=== PATIENT | female | born 1970 | race Two or more races ===

== ENCOUNTER → 2025-01-30 | Outpatient (CLI) | payer MEDICAID, SELFPAY ==
--- NOTE | 2025-01-30 14:45 | XR_ITS ---
Examination: Screening digital mammography, bilateral Computer aided detection 3-D breast Tomosynthesis, bilateral Date and time of exam: January 30, 2025, 1429 hours Indication: Screening Technique: Nonmagnified MLO, CC views of the breasts to been obtained, reconstructed from 3-D Tomosynthesis images. R2 computer aided detection program utilized for evaluation of suspicious masses and/or abnormal calcifications. 3-D Tomosynthesis images obtained. Findings: The breasts are heterogeneously dense, which may obscure small masses 13 mm and adjacent 13 mm focal areas of asymmetry in the upper outer right breast 7 mm focal asymmetry upper inner left breast anterior depth Impression: BI-RADS Category 0: Incomplete: Needs extremity evaluation Recommend follow-up spot tomographic views upper-outer quadrant right breast to assess to 13 mm focal asymmetries upper outer right breast as well as spot tomographic views 7 mm focal asymmetry upper inner left breast anterior depth Recommend bilateral breast sonography to complete the work-up.
== END | disposition home or self-care (01) ==
LOC: CDIM 14:20
PROVIDERS: Referring Provider Nurse Practitioner Primary Care; Visit Provider Nurse Practitioner Primary Care
DX: Z12.31 Encounter for screening mammogram for malignant neoplasm of breast (principal); N64.89 Other specified disorders of breast
CPT/HCPCS: 77063; 77067

== ENCOUNTER 2025-02-01 12:41 | Emergency (ER) | payer MEDICAID, SELFPAY ==
[2025-02-01 12:49] VITALS: BP 139/88; PULSE 80; RESP 18; TEMP 36.4; O2SAT 98; BMI 30.2
--- NOTE | 2025-02-01 13:33 | EKG_ITS ---
[facility] Test Date: 2025-02-01 Pat Name: WILLIAM SINGH Department: Room: - Gender: Female Network Systems Operator: : 1970 Requested By: Michel Pedro Order Number: [id number] Reading MD: Michel Pedro Measurements Intervals [place] Rate: 71 P: 46 NM: 179 QRS: 30 QRSD: 88 T: 22 QT: 355 QTc: 388 Interpretive Statements SINUS RHYTHM POSSIBLE LEFT ATRIAL ENLARGEMENT [-0.1mV P-WAVE IN V1/V2] POSSIBLE RIGHT VENTRICULAR CONDUCTION DELAY [RSR (QR) IN V1/V2] NONSPECIFIC T-WAVE ABNORMALITY No previous ECG available for comparison /store/S0/[id number].pdf
--- NOTE | 2025-02-01 13:33 | XR_ITS ---
EXAMINATION: Cervical spine 3 views TECHNIQUE: AP, lateral, coned AP odontoid cervical spine 3 views Date and time: February 01, 2025, 1344 hours INDICATIONS: Sudden onset left-sided cervical spine pain beginning 3 days ago. FINDINGS: Adequate alignment cervical vertebral bodies. No cervical fracture. Intact odontoid. Moderate to advanced degenerative disc disease C4-C5, C5-C6, C6-C7 with anterior and posterior osteophyte formation IMPRESSION: Moderate to advanced degenerative disc disease C4-C5, C5-C6, C6-C7 No cervical fracture
--- NOTE | 2025-02-01 13:33 | XR_ITS ---
EXAMINATION: PA chest single view TECHNIQUE: Upright PA chest single view Date and time: February 01, 2025, 1343 hours, comparison March 02, 2016 INDICATIONS: Chest pain and numbness in the left arm beginning 3 days ago. FINDINGS: Moderate enlargement left ventricle Mild vascular congestion. No lobar pneumonia or pulmonary edema IMPRESSION: Moderate enlargement left ventricle Mild vascular congestion
[2025-02-01 14:10] LABS: Basophils # (Auto) 0.1 Thou/mm3 (0.0-0.2); Basophils % (Auto) 1 % (0-2.5); Eosinophils # (Auto) 0.1 Thou/mm3 (0.0-0.5); Eosinophils % (Auto) 1 % (0-10); Hematocrit 40.5 % (36.0-46.0); Hemoglobin 13.3 g/dL (12.0-16.0); Immature Granulocytes Auto 0.02 Thou/mm3 (0.00-0.00); Lymphocytes # (Auto) 2.6 Thou/mm3 (1.0-4.8); Lymphocytes % (Auto) 37 % (10-50); Mean Corpuscular HGB Conc 32.8 g/dl (31.0-37.0); Mean Corpuscular Hemoglobin 29.4 pg (25.0-35.0); Mean Corpuscular Volume 90 fL (80-100); Monocytes # (Auto) 0.5 Thou/mm3 (0.0-0.8); Monocytes % (Auto) 7 % (0-12); Neutrophils # (Auto) 4.0 Thou/mm3 (1.8-7.7); Neutrophils % (Auto) 55 % (37-80); Nucleated Red Blood Cell # 0.00 Thou/mm3 (0.00-0.00); Nucleated Red Blood Cell % 0 /100 WBC (0); Platelet Count 301 Thou/mm3 (140-440); RDW Standard Deviation 41.5 fL (36.4-46.3); Red Blood Count 4.52 Miln/mm3 (4.00-5.20); White Blood Count 7.2 Thou/mm3 (3.6-11.0)
[2025-02-01 14:30] LABS: Alanine Aminotransferase 20 U/L (10-49); Albumin, Serum 4.9 gm/dL (3.5-5.0); Albumin/Globulin Ratio 1.7 (1.2-2.2); Alkaline Phosphatase 76 U/L (46-116); Anion Gap 9 (7-16); Aspartate Amino Transferase 24 U/L (0-34); BUN/Creatinine Ratio 19 Ratio (12-20); Bilirubin,Total 0.4 mg/dL (0.3-1.2); Blood Urea Nitrogen 13 mg/dL (9-23); Calcium 9.4 mg/dL (8.3-10.6); Calcium (Corrected) 9.4 mg/dL (8.5-10.1); Carbon Dioxide 29.1 mMol/L (20.0-31.0); Chloride 104 mMol/L (98-107); Creatinine (Component) 0.7 mg/dL (0.6-1.3); Estimated Creatinine Clearance 92.9 mL/min (>60); Globulin 2.9 gm/dL (2.3-3.5); Glucose 95 mg/dL (74-106); Osmolality,Calculated 283 (275-295); Potassium 3.5 mMol/L (3.4-5.1); Sodium 142 mMol/L (136-145); Total Protein 7.8 gm/dL (5.7-8.2); Troponin I < 0.002 ng/mL (0.0-0.045); eGFR > 60 See Note
[2025-02-01] MEDS: DIAZEPAM 5 MG TABLET 10 MG PO (14:49)
[2025-02-01] MEDS: KETOROLAC INJ 30 MG/ML VIAL IM (14:49)
--- NOTE | 2025-02-01 14:49 | PD.EDBACK ---
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 Denies vertigo, fever, shortness of breath, nausea vomiting, vision changes, speech changes, incontinence, weakness. Related Data Previous Rx's ?Medication ?Instructions ?Recorded hydrochlorothiazide 12.5 mg capsule 12.5 mg PO QDAY #30 caps 12/28/15 prednisone 10 mg tablets in a dose 30 mg (3 x 10 mg) PO BID #18 tabs 10/31/16 pack cyclobenzaprine 10 mg tablet 10 mg PO HS PRN muscle spasm #10 02/01/25 tabs lidocaine 5 % topical patch 1 patch topical QDAY #15 ea 02/01/25 (Lidoderm) naproxen 500 mg tablet 500 mg PO BID PRN pain #14 tabs 02/01/25 Allergies Allergy/AdvReac Type Severity Reaction Status Date / Time No Known Drug Allergies Allergy Verified 02/01/25 12:47 ED Exam Narrative Physical exam: Constitutional: Patient alert and oriented. Well appearing. No acute distress. Not toxic appearing. Head: Normocephalic, atraumatic. Eyes: Periorbital regions bilaterally normal to inspection. Conjunctiva clear bilaterally. Sclera anicteric bilaterally. Pupils equal, round, reactive to light bilaterally. Extraocular movements intact bilaterally. Mouth/Throat: Mucous membranes moist. No stridor or muffled voice. No trismus. Handling secretions without difficulty. Airway widely patent. Neck: Supple. Trachea midline. No JVD. No nuchal rigidity. Normal range of motion. Respiratory: Normal effort. No accessory muscle use or respiratory distress. Lungs clear to auscultation bilaterally without rhonchi, wheezes, or crackles. Cardiovascular: RRR. Normal S1/S2. No murmurs or rubs. Radial pulses intact bilaterally. Abdomen: Soft. Non-distended. Non-tender throughout. No pulsatile mass. No guarding or rebound. Negative No?s sign. Back: No midline tenderness or step-offs. Left CVA TTP. Positive left parathoracic, paracervical, lumbar tenderness to palpation. Upper Extremities: No gross deformities. Positive Spurling's test for flexion of the neck to the left. Deep tendon reflexes 2+ and symmetric. Accounts Payable Administrator, median, ulnar, radial nerve strength 5/5 B/L. Lower Extremities: No gross deformities. No edema or calf tenderness. Positive left-sided straight leg raise. Deep tendon reflexes 2+ and symmetric Neuro: Speech normal. No gross motor or sensory deficits to upper or lower extremities bilaterally. GCS 15. CN II?XII grossly intact. Skin: Warm, dry, normal color. Psych: Normal affect. Cooperative. Normal insight. Course Quality Measures none Orders Category Date Time Status EKG (ED ONLY) *Do not use* NOW Care 02/01/25 13:[address] abdomen pelvis wo con Stat Exams 02/01/25 16:14 Completed EKG (ED Only) Stat Exams 02/01/25 13:33 Draft XR cervical spine 2-3V Stat Exams 02/01/25 13:33 Completed XR chest 1V Stat Exams 02/01/25 13:33 Completed BNP [B-Type Natriuretic Peptide] Stat Lab 02/01/25 14:00 Completed CBC Stat Lab 02/01/25 14:00 Completed CMP [Comprehensive Metabolic Panel] Stat Lab 02/01/25 14:00 Completed Troponin I Stat Lab 02/01/25 14:00 Completed Dexamethasone Inj [Decadron Inj] Med 02/01/25 16:19 Discontinued 10 mg IM X1 ONE Diazepam [Valium] Med 02/01/25 13:34 Discontinued 10 mg PO X1 ONE Ketorolac Inj [Toradol Inj] Med 02/01/25 13:34 Discontinued 30 mg IM X1 ONE Ketorolac Inj [Toradol Inj] Med 02/01/25 16:15 Discontinued 30 mg IM X1 ONE Reevaluation(s) Reevaluation #1: At the time of reassessment, the patient remains alert and oriented ?3 with GCS 15. Vitals are normal, pain is controlled, and the patient is tolerating oral intake without nausea or vomiting. The patient is agreeable to discharge and verbalizes understanding of the diagnosis, studies, treatment plan, medications (including side effects/precautions), and strict ER return precautions as discussed in the ED. All concerns were addressed, and the patient is comfortable with the plan. Vital Signs Vital signs: Vital Signs Temperature 97.6 F 02/01/25 12:49 Pulse Rate 80 02/01/25 12:49 Respiratory Rate 18 02/01/25 12:49 Blood Pressure 139/88 H 02/01/25 12:49 Pulse Oximetry (%) 98 02/01/25 12:49 Oxygen Delivery Method Room Air 02/01/25 12:49 Back Pain / Injury MDM Narrative MDM Narrative:: MDM: Presentation most consistent with a msk back pain complicated by cervical and lumbar radiculopathy. Symptoms are sensory only, without associated weakness or central features. Reflexes preserved; no hyperreflexia, clonus, or spasticity. No facial or speech involvement to suggest cortical process. left upper extremity and lower extremity remains DNVI with soft compartments, no vascular compromise. CVA/TIA: No facial droop, speech change, or motor deficit; NIHSS 0. Cord or Cauda Compression/Myelopathy: No sensory level, saddle anesthesia, hyperreflexia, gait disturbance, or bowel/bladder dysfunction to suggest cervical, thoracic, or lumbosacral involvement. Reflexes not pathologically brisk; tone normal. Demyelinating Process (MS/Transverse Myelitis): Typically presents with bilateral or symmetric findings; none present here. No visual disturbance, abnormal reflexes, or progressive motor deficit. Toxic/Metabolic: No recent exposure or systemic findings. Summary: Findings support radicular etiology versus stable peripheral etiology; patient neurologically intact with low suspicion for acute SENIOR CONSULTING MANAGER, vascular, cord, cauda equina or compressive process. Patient remains neurologically stable Plan: Symptomatic management and reassurance. Outpatient follow-up with PMD if persistent or progressive. Return precautions for new weakness, saddle anesthesias, incontinence, gait change, facial droop, speech difficulty, or progression. Patient understands and agrees with plan. Patient data External records reviewed:: None Clinical information provided by:: other (specify) Social determinants that could affect healthcare access:: none Patient has the following chronic illnesses:: None How is presenting disease/condition affected by chronic disease/condition?: no chronic disease Evaluation data The following diagnostics were reviewed and interpreted by me:: lab results, radiology exam(s), EKG tracing(s) and other (specify) Lab and/or radiology exams considered but not ordered:: Labs and radiology considered, but not ordered as they were not clinically indicated at this time. Interpretation Summary: No severe metabolic or electrolyte abnormality and EKG without acute ischemia or arrhythmia. UA was notable for microscopic hematuria. X-ray was notable for mild vascular congestion and cardiomegaly without effusions. Medications / Prescriptions Medications or Prescriptions considered but not ordered:: I considered prescription management (both outpatient prescriptions AND drug treatment in the ER) and decided that this was necessary and was prescribed as charted. Medication administrations:: Medication Administration History Discontinued Medications Dexamethasone Sodium Phosphate (Dexamethasone Sod Phos Inj 10 Mg/Ml Vial) 10 mg IM X1 ONE Stop: 02/01/25 16:20 Last Admin: 02/01/25 16:29 Dose: 10 mg Documented By: JACKELINE Diazepam (Diazepam 5 Mg Tablet) 10 mg PO X1 ONE Stop: 02/01/25 13:35 Last Admin: 02/01/25 14:49 Dose: 10 mg Documented By: JACKELINE Ketorolac Tromethamine (Ketorolac Inj 30 Mg/Ml Vial) 30 mg IM X1 ONE Stop: 02/01/25 13:35 Last Admin: 02/01/25 14:49 Dose: 30 mg Documented By: JACKELINE Ketorolac Tromethamine (Ketorolac Inj 30 Mg/Ml Vial) 30 mg IM X1 ONE Stop: 02/01/25 16:16 Last Admin: 02/01/25 16:19 Dose: Not Given Documented By: JACKELINE Non-Admin Reason: Cancelled by Provider as noted Consultations Consultation(s) initiated? (list below): No Diagnosis Differential diagnosis back pain/injury: lumbar radiculopathy, sciatica and AAA Most likely diagnosis given after review of the tests above:: Cervical radiculopathy complicated by lumbar radiculopathy Admission Indicated Admission indicated?: not indicated Admission Request Was there a request for admission?: No Disposition Plan Disposition Plan: Discharge Discharge Attestation Discharge Attestation: The patient and all family members were given an opportunity to ask questions and understood the discharge instructions. Discharge instructions specifically effects, indications for sooner follow up or return to the emergency department, and the expected course of current diagnosis. Patient condition: Stable Discharge Plan Plan Patient Disposition: HOME (Self Care) Prescriptions/Referrals Prescriptions/Med Rec: New lidocaine [Lidoderm] 5 % adhesive patch,medicated 1 patch topical QDAY Qty: 15 0RF Rx Instructions: leave on most painful area for up to 12 hrs cyclobenzaprine 10 mg tablet 10 mg PO HS PRN (Reason: muscle spasm) Qty: 10 0RF naproxen 500 mg tablet 500 mg PO BID PRN (Reason: pain) Qty: 14 0RF No Action hydrochlorothiazide 12.5 MG capsule 12.5 mg PO QDAY Qty: 30 0RF prednisone 10 MG tablets,dose pack 30 mg PO BID Qty: 18 0RF Referrals: Troy ([facility])Stefanie PA-C [Primary Care Provider] - In 1 week Problem List Clinical Impression: Lumbar radiculopathy Patient/Caregiver Discharge Instructions Education Materials: Back Basics: A Healthy Spine, Understanding Lumbar Radiculopathy, ED Radiculopathy, Cervical Additional Instructions: Follow up with your primary medical doctor within 24 hours. Return to the Emergency Room immediately for any new, worsening, continuing symptoms or any concerns at all. Return to the Emergency Room within 24 hours if you are unable to follow up with your primary medical doctor within 24 hours. Print Language: Mongolian Stand Alone Forms: Lisset Award Info., Patient Portal Info Letter PA/WHITNEY Supervising Physician PA/WHITNEY Supervising Physician: Dr. Haines
--- NOTE | 2025-02-01 16:14 | XR_ITS ---
Examination: CT abdomen and pelvis without contrast. Coronal 3-D reconstructions. Sagittal 2-D reconstructions. Date and time of exam: February 01, 2025, 1654 hours INDICATIONS: Onset left-sided flank pain beginning 1 week ago CTDI: vol (mGy): 9.44 DLP: (mGycm): 506 Technique: Axial images of the abdomen have been obtained, 3 mm slice thickness Intravenous contrast material has not been administered. Low dose protocols were performed. One or more of the following dose reduction techniques were used; automated exposure control, adjustment of the mA and/or KV according to patient size, use of iterative reconstruction technique. Findings: No liver or splenic lesion No gallstones No pancreatic mass No renal or ureteral calculi, no hydronephrosis Aorta normal size 13 mm fat-containing umbilical hernia No bowel obstruction Normal appendix Scattered colonic diverticulosis, no diverticulitis Atrophic uterus, no adnexal mass Urinary bladder intact, no bladder mass or bladder calculi Moderate osteopenia IMPRESSION: No renal or ureteral calculi, no hydronephrosis Normal appendix No bladder mass or bladder calculi
[2025-02-01 16:27] VITALS: BP 136/87; PULSE 56; RESP 18; TEMP 36.6; O2SAT 100
[2025-02-01] MEDS: DEXAMETHASONE SOD PHOS INJ 10 MG/ML VIAL IM (16:29)
[2025-02-01 16:49] LABS: B-Type Natriuretic Peptide < 20 pg/mL (0-100)
== END 2025-02-01 18:14 | disposition home or self-care (01) ==
PROVIDERS: Physician Assistant; Emergency Provider Emergency Medicine; PCP Physician Assistant
DX: M54.16 Radiculopathy, lumbar region (principal)
CPT/HCPCS: 36415; 71045; 72040; 74176; 80053; 83880; 84484; 85025; 93005; 96372; 99283; J1100; J1885; A9270

== ENCOUNTER 2025-02-03 11:16 | Emergency (ER) | payer MEDICAID, SELFPAY ==
[2025-02-03 11:17] VITALS: BMI 32.9
[2025-02-03 12:00] VITALS: BP 133/85; PULSE 70; RESP 18; TEMP 36.9; O2SAT 99
--- NOTE | 2025-02-03 12:05 | XR_ITS ---
EXAMINATION: Lumbar spine 3 views TECHNIQUE: AP lateral: Lateral lower lumbar spine 3 views Date and time: February 03, 2025, 12:44 p.m. INDICATIONS: Low back pain beginning 6 days ago. FINDINGS: Adequate alignment lumbar vertebral bodies No lumbar fracture Diffuse mild lumbar disc narrowing. Mild lumbar spondylosis. IMPRESSION: Diffuse mild lumbar degenerative disc disease
--- NOTE | 2025-02-03 12:05 | PD.EDRME ---
Rapid Medical Screening Exam RME Arrival date/time: 02/03/25 11:16 54-year-old female with a history of hypertension presents to the emergency room with a chief complaint of left-sided body pain x 6 days. Patient states she was seen here 2 days ago and her symptoms have not gotten any better. I have greeted and performed a focused initial assessment of this patient. A comprehensive ED assessment and evaluation of the patient, analysis of all test results, and completion of the medical decision making process will be conducted by additional ED providers. Chief Complaint: General Adult/Misc Complain Vital signs: Vital Signs Temperature 98.5 F 02/03/25 12:00 Pulse Rate 70 02/03/25 12:00 Respiratory Rate 18 02/03/25 12:00 Blood Pressure 133/85 H 02/03/25 12:00 Pulse Oximetry (%) 99 02/03/25 12:00 Oxygen Delivery Method Room Air 02/03/25 12:00 Vital signs reviewed by provider: Yes
[2025-02-03 12:50] LABS: Collection Type, Urine Clean Catch
[2025-02-03 12:58] LABS: Basophils # (Auto) 0.1 Thou/mm3 (0.0-0.2); Basophils % (Auto) 1 % (0-2.5); Eosinophils # (Auto) 0.1 Thou/mm3 (0.0-0.5); Eosinophils % (Auto) 1 % (0-10); Hematocrit 39.7 % (36.0-46.0); Hemoglobin 13.0 g/dL (12.0-16.0); Immature Granulocytes Auto 0.04 Thou/mm3 (0.00-0.00); Lymphocytes # (Auto) 4.5 Thou/mm3 (1.0-4.8); Lymphocytes % (Auto) 40 % (10-50); Mean Corpuscular HGB Conc 32.7 g/dl (31.0-37.0); Mean Corpuscular Hemoglobin 29.5 pg (25.0-35.0); Mean Corpuscular Volume 90 fL (80-100); Monocytes # (Auto) 0.6 Thou/mm3 (0.0-0.8); Monocytes % (Auto) 6 % (0-12); Neutrophils # (Auto) 6.1 Thou/mm3 (1.8-7.7); Neutrophils % (Auto) 54 % (37-80); Nucleated Red Blood Cell # 0.00 Thou/mm3 (0.00-0.00); Nucleated Red Blood Cell % 0 /100 WBC (0); Platelet Count 297 Thou/mm3 (140-440); RDW Standard Deviation 43.3 fL (36.4-46.3); Red Blood Count 4.41 Miln/mm3 (4.00-5.20); White Blood Count 11.4 Thou/mm3 (3.6-11.0)
[2025-02-03 13:00] LABS: Bilirubin,Urine Negative (Negative); Blood,Urine Trace (Negative); Clarity,Urine Clear (Clear/Hazy); Color,Urine Lt-Yellow (Lt Yel-Yel); Glucose, Urine Negative (Negative); Ketones,Urine Negative (Negative); Leukocyte Esterase,Urine Negative (Negative); Nitrite,Urine Negative (Negative); PH,Urine 7.0 (5.0-7.0); Protein,Urine Negative (Neg - Trace); RBC,Urine 2 /hpf (0-3); Specific Gravity,Urine 1.017 (1.001-1.035); Squamous Epithelial Cell,Urine 1 /hpf (0-5); Urobilinogen,Urine Negative mg/dL (0.0-1.0); WBC,Urine < 1 /hpf (0-5)
[2025-02-03] MEDS: KETOROLAC INJ 60 MG/2 ML VIAL 30 MG IM (13:05)
[2025-02-03 13:16] LABS: Alanine Aminotransferase 18 U/L (10-49); Albumin, Serum 4.6 gm/dL (3.5-5.0); Albumin/Globulin Ratio 1.8 (1.2-2.2); Alkaline Phosphatase 69 U/L (46-116); Anion Gap 11 (7-16); Aspartate Amino Transferase 19 U/L (0-34); BUN/Creatinine Ratio 19 Ratio (12-20); Bilirubin,Total 0.5 mg/dL (0.3-1.2); Blood Urea Nitrogen 13 mg/dL (9-23); Calcium 9.3 mg/dL (8.3-10.6); Calcium (Corrected) 9.3 mg/dL (8.5-10.1); Carbon Dioxide 30.1 mMol/L (20.0-31.0); Chloride 104 mMol/L (98-107); Creatinine (Component) 0.7 mg/dL (0.6-1.3); Estimated Creatinine Clearance 89.9 mL/min (>60); Globulin 2.5 gm/dL (2.3-3.5); Glucose 81 mg/dL (74-106); Lipase 41 U/L (12-53); Osmolality,Calculated 287 (275-295); Potassium 3.3 mMol/L (3.4-5.1); Sodium 145 mMol/L (136-145); Total Protein 7.1 gm/dL (5.7-8.2); eGFR > 60 See Note
--- NOTE | 2025-02-03 13:40 | EDNOTE_ITS ---
ED General RME/HPI General Chief complaint: General Adult/Misc Complain Stated complaint: LEFT BODY PAIN x 6 DAYS, SEEN MONDAY Time Seen by Provider: 02/03/25 13:13 Arrival date/time: 02/03/25 11:16 CC: Left low back pain with radiation in the low back down the back of the leg and around the side of the abdomen. Onset 6 days ago. Patient was seen here and discharged with Lidoderm patches and naproxen without relief continues to have the issue. Patient denies fever chills chest pain shortness of breath or difficulty breathing. There has been minimal relief with the medications prescribed 2 days ago. RME / HPI RME / HPI narrative: 02/03/25 11:16 54-year-old female with a history of hypertension presents to the emergency room with a chief complaint of left-sided body pain x 6 days. Patient states she was seen here 2 days ago and her symptoms have not gotten any better. I have greeted and performed a focused initial assessment of this patient. A comprehensive ED assessment and evaluation of the patient, analysis of all test results, and completion of the medical decision making process will be conducted by additional ED providers. Related Data Previous Rx's ?Medication ?Instructions ?Recorded hydrochlorothiazide 12.5 mg capsule 12.5 mg PO QDAY #3 0 caps 12/28/15 prednisone 10 mg tablets in a dose 30 mg (3 x 10 mg) P O BID #18 tabs 10/31/16 pack cyclobenzaprine 10 mg tablet 10 mg PO HS PRN muscle sp asm #10 02/01/25 tabs lidocaine 5 % topical patch 1 patch topical QDAY #15 e a 02/01/25 (Lidoderm) naproxen 500 mg tablet 500 mg PO BID PRN pain #14 t abs 02/01/25 meloxicam 7.5 mg tablet 7.5 mg PO QDAY #10 tabs 01/22 07/16 prednisone 20 mg tablet See Taper PO BID 3 days #6 t abs 02/03/25 Allergies Allergy/AdvReac Type Severity Reaction Status Date / Time No Known Drug Allergies Allergy Verified 02/03/25 11:20 Review of Systems Review of Systems Narrative Review of Systems: GEN: No fever, no chills, no weight loss EYES: No discharge, no visual changes, no pain HEENT: No ear pain, no congestion, no sore throat PULM: No shortness of breath, no cough, no congestion CV: No chest pain, no dyspnea on exertion, no palpitations GI: No nausea, no vomiting, no diarrhea, no pain, no constipation : No frequency, no urgency, no dysuria MUSC/SKEL: No joint pain, no back pain SKIN: No rash PSYCH: No hallucinations, no depression HEME/LYMPH: No easy bleeding or bruising tendencies NEURO: No weakness, no headache Past Medical History Social History SMOKING STATUS: Never smoker ED Exam Narrative Physical exam: [General: Obese not in any acute distress Head normocephalic HEENT: Within acceptable limits Neck is supple nontender Chest equal chest rise nontender to palpation Respiratory: Clear to auscultation no wheezes crackles or rubs CV: Rate rhythm is regular no murmurs rubs or clicks Abdomen is distended secondary to body habitus soft nontender no masses positive bowel sounds all 4 quadrants Back: Left paralumbar tenderness with palpation and reflexes down into the buttocks, pain is also reproducible to the left side of the chest wall. No right sided or upper back pain with palpation. Skin: Intact no petechiae rash induration ulceration or crepitus Extremities: Moving all extremity against resistance cap refill less than 2 seconds neurosensory intact, observed ambulating without complication. Neuro: Awake alert oriented x3 Glascow coma 15 no focal deficits] Course Course Course Narrative: 30 minutes after Toradol injection patient states she has minimal relief. This time patient understands that this is muscular in nature as it is reproducible with palpation. Quality Measures none Orders Category Date Time Status XR lumbar spine 2-3V Stat Exams 02/03/25 12:05 Completed CBC Stat Lab 02/03/25 12:28 Completed CMP [Comprehensive Metabolic Panel] Stat Lab 02/03/25 12:28 Completed Lipase Stat Lab 02/03/25 12:28 Completed UA [Urinalysis] Stat Lab 02/03/25 12:40 Completed Urine Culture Stat Lab 02/03/25 12:05 Received Ketorolac Inj [Toradol Inj] Med 02/03/25 12:05 Discontinued 30 mg IM X1 ONE Vital Signs Vital signs: Vital Signs Temperature 98.5 F 02/03/25 12:00 Pulse Rate 70 02/03/25 12:00 Respiratory Rate 18 02/03/25 12:00 Blood Pressure 133/85 H 02/03/25 12:00 Pulse Oximetry (%) 99 02/03/25 12:00 Oxygen Delivery Method Room Air 02/03/25 12:00 Discharge Plan Plan Patient Disposition: HOME (Self Care) Patient condition on transfer: Stable Prescriptions/Referrals Prescriptions/Med Rec: New prednisone 20 mg tablet See Taper PO BID 3 Days Qty: 6 0RF Taper: Prednisone Taper 20 mg DAILY for 2 Days and 0 Hour 10 mg DAILY for 2 Days and 0 Hour 5 mg DAILY for 7 Days and 0 Hour meloxicam 7.5 mg tablet 7.5 mg PO QDAY Qty: 10 0RF No Action hydrochlorothiazide 12.5 MG capsule 12.5 mg PO QDAY Qty: 30 0RF prednisone 10 MG tablets,dose pack 30 mg PO BID Qty: 18 0RF lidocaine [Lidoderm] 5 % adhesive patch,medicated 1 patch topical QDAY Qty: 15 0RF Rx Instructions: leave on most painful area for up to 12 hrs cyclobenzaprine 10 mg tablet 10 mg PO HS PRN (Reason: muscle spasm) Qty: 10 0RF naproxen 500 mg tablet 500 mg PO BID PRN (Reason: pain) Qty: 14 0RF Referrals: Fermin West MD [Physician, Family Practice] - In 1 week Problem List Clinical Impression: Lumbar radiculopathy, Muscle strain Patient/Caregiver Discharge Instructions Other Activity Instructions:: Avoid strenuous exercise take the medication as needed for temporary pain relief this should pass on its own. Education Materials: ED Back Care Tips, ED Back and Neck Pain, General Print Language: Latvian Stand Alone Forms: Lisset Award Info., Patient Portal Info Letter, Work/School Release PA/SYSTEMS NAVIGATOR Supervising Physician PA/SYSTEMS NAVIGATOR Supervising Physician: Saurabh Tabares ENP [facility] Clinical Information Provided by: patient Medical Records reviewed [facility] Chronic Illness/Social Conditions which may negatively complicate care or outcome(s)-explain: None or not applicable Explain: Obesity EKG EKG not done Labs Labs: interpreted by wa Lab(s) Interpretation(s): CBC shows no significant leukocytosis anemia thrombocytopenia CMP shows a potassium of 3.3 no other electrolyte imbalances renal impairment transaminitis or T. bili elevation Urine is negative for UTI hematuria or leukocyte esterase. Imaging Imaging interpretation: interpreted by wa Imaging Interpretation(s): Lumbar x-ray shows no significant fracture malalignment or dislocation. Medication Administration(s) none Medication Administration History Discontinued Medications Ketorolac Tromethamine (Ketorolac Inj 60 Mg/2 Ml Vial) 30 mg IM X1 ONE Stop: 02/03/25 12:06 Last Admin: 02/03/25 13:05 Dose: 30 mg Documented By: JACKELINE Diagnosis Differential Diagnosis ED Complaint MDM: Sprain strain sciatica of the back
== END 2025-02-03 14:21 | disposition home or self-care (01) ==
LOC: SERX 14:52
PROVIDERS: Nurse Practitioner Family; Emergency Provider Family Medicine
DX: M54.16 Radiculopathy, lumbar region (principal); E66.9 Obesity, unspecified; I10 Essential (primary) hypertension; Z79.52 Long term (current) use of systemic steroids
CPT/HCPCS: 36415; 72100; 80053; 81001; 83690; 85025; 87086; 96372; 99283; J1885